=== PATIENT | female | born 1975 | race Caucasian/White ===

== ENCOUNTER 2019-03-21 04:14 | Inpatient (IN) | payer MEDICAID ==
[~2019-03-21] VITALS: Ht 160 cm; Wt 78.1 kg
[2019-03-21 04:37] VITALS: Ht 160 cm; Wt 78.1 kg
[2019-03-21] MEDS ORDERED: LACTATED RINGER'S 1,000 ML IV SCH (04:38)
[2019-03-21] MEDS ORDERED: LACTATED RINGER'S 1,000 ML IV PRN (04:38)
[2019-03-21] MEDS ORDERED: MISOPROSTOL 200 MCG TAB PR PRN ×2 (05:00→10:30)
[2019-03-21] MEDS ORDERED: OXYTOCIN 30 UNITS/LR 500 ML IV SCH ×2 (05:00)
[2019-03-21] MEDS ORDERED: BUTORPHANOL 2 MG INJ IV PRN (05:00)
[2019-03-21] MEDS ORDERED: CARBOPROST 250 MCG INJ IM PRN ×2 (05:00→10:30)
[2019-03-21] MEDS ORDERED: OXYTOCIN 30 UNITS/LR 500 ML IV PRN ×2 (05:00→10:30)
[2019-03-21] MEDS ORDERED: METHYLERGONOVINE 0.2 MG INJ IM PRN ×2 (05:00→10:30)
[2019-03-21] MEDS ORDERED: IBUPROFEN 600 MG TAB PO PRN (05:00)
[2019-03-21] MEDS ORDERED: LIDOCAINE 1% (MPF) 30 ML INJ INJ PRN (05:00)
--- NOTE | 2019-03-21 06:14 | TRIAGE ---
OB Triage Datetime Report Generated by CPN: 03/21/2019 06:14 Datetime: 03/21/2019 05:49 Vaginal Exam Dilatation (cms): 9.0 Effacement (%): 90 Station: -2 Exam By: EMARTIN Datetime: 03/21/2019 05:29 Maternal Assessment Level of Consciousness: Keenly Alert, Responsive Labor Evaluation Frequency: 3-4 Duration (sec)2399: 90-120 Quality: Strong Pattern: Normal: <= 5 Contractions in 10 Minutes Resting Tone [place]: Relaxed Heart Rate FHR Baseline Rate: 145 Monitor Mode: External US Variability: Moderate 6-25 bpm Accelerations: 15X15 Decelerations: None Category: Category I Datetime: 03/21/2019 05:01 Presentation 'A': Cephalic Datetime: 03/21/2019 05:00 Time of Arrival: 03/21/2019 05:00 EGA: 38.5 Arrived By: Wheelchair Datetime: 03/21/2019 04:52 Assessment Type: Admission Assessment Vaginal Bleeding: None Maternal Assessment Level of Consciousness: Keenly Alert, Responsive DTR's/Clonus: DTRs 2+; No Clonus Headache: Denies Blurred Vision: No Respiratory Effort: Unlabored; Regular Rhythm; Equal Expansion Breath Sounds, Left: Clear and Equal Breath Sounds, Right: Clear and Equal Nausea/Vomiting: Denies RUQ Epigastric Pain: Denies Lower Extremities Edema: None Degree: None Upper Extremities Edema: None Degree: None Facial Edema: None Fall Risk Assessment History of Falling: (0) No Secondary Diagnosis: (0) No Ambulatory Aid: (0) Bedrest/Nurse Assist IV Therapy: (0) No Gait: (0) Normal/Bedrest/Immobile Mental Status: (0) Oriented to Own Ability Fall Score: 0 Fall Risk Score Definition: No Risk: No action required Labor Evaluation Frequency: 4 Duration (sec)2399: 60-90 Quality: Strong Pattern: Normal: <= 5 Contractions in 10 Minutes Resting Tone [place]: Relaxed Heart Rate FHR Baseline Rate: 135 Variability: Moderate 6-25 bpm Accelerations: 15X15 Decelerations: None Category: Category I Pain Assessment Pain Scale: 10 Pain Presence: Intermittent Pain Type: Contraction Pain Location: Abdomen Membrane Status: Intact Datetime: 03/21/2019 04:30 Stage of : Labor Labor Evaluation Frequency: q3mins Monitor Mode: External Duration (sec)2399: 80-100 Quality: Strong Pattern: Normal: <= 5 Contractions in 10 Minutes Resting Tone [place]: Relaxed Heart Rate FHR Baseline Rate: 135 Monitor Mode: External US Variability: Moderate 6-25 bpm Accelerations: None Decelerations: Early Datetime: 03/21/2019 04:29 Vaginal Exam Dilatation (cms): 6.5 Effacement (%): 80 Station: -2 Exam By: JUSTIN Sepulveda Membrane Status: Intact Vaginal Bleeding: Scant Cervix, Consistency: Soft Cervix, Position: Posterior Datetime: 03/21/2019 04:27 EGA: 38.5 Datetime: 03/21/2019 04:23 Monitor Mode: External Contraction Comments: [place] applied Heart Rate FHR Baseline Rate: 135 Monitor Mode: External US Comments: EFM applied Datetime: 03/21/2019 04:21 Time of Arrival: 03/21/2019 04:06 Arrived By: Wheelchair Arrived From: Home Chief Complaint: UCs q3mins since 0200 Movement: Present Contractions: Regular Time Contractions Began: 03/21/2019 02:00 Contractions: q3mins Rupture of Membranes: Denies Vaginal Bleeding: None Vaginal Discharge: Present Abdominal Trauma: Not Applicable Patient Complaints: Contractions; Cramping; Back Pain Time Provider Notified: 03/21/2019 04:32 Provider Notified: Initial Plan: EFM, VE
--- NOTE | 2019-03-21 07:16 | LDN ---
Date/Time of Note Date/Time of Note DATE: 03/21/19 TIME: 07:13 Delivery Summary of normal male Weeks of Gestation 38w5d Placenta Delivered: Spontaneously, Intact & Complete Meconium: Light Episiotomy: No Perineal laceration: 0 Anesthesia type: Epidural Estimated blood loss: 150 Sponge & Needle done & correct: Yes All needle counts correct: Yes Any foreign bodies felt in the: No Infant Delivery Information Sex Infant Sex: male Apgars 1 Minute: 9 5 Minute: 9 Suctioning Nose & mouth suctioned at anibal: Yes Delee suction performed: Yes Umbilical Cord Umbilical cord with: 3 Vessels Cord presentations: no nuchal cord Cord Blood was obtained: Yes Mother & Baby Disposition Disposition Mom & Baby to Maternity; Good: Yes Mom transferred to: Other Baby to NICU: No BHUPINDER ANSARI MD Mar 21, 2019 07:15
--- NOTE | 2019-03-21 07:35 | HP ---
Date/Time of Note Date/Time of Note DATE: 03/21/19 TIME: 07:16 OB - History Hx of Present Free Text/Dictation 43 y.o here at 38w5d in active labor with intact membrane. Initial VE 6-7/80/-2 CAT I no record is available but her course was initiated in july 05 was unevenful. GBS status neg admitted for expectant management. Chief Complaint: uc's Estimated Due Date: Mar 30, 2019 : 3 Para: 2 Spontaneous : 0 Therapeutic : 0 Care: Other Ultrasounds: Normal mid trimester US Obstetrical Complications: None Medical Complications: None Past Family/Social History * Past Medical, Surgical, Family and Obstetric Histories reviewed from chart. Blood Type: Unknown RPR/VDRL: Negative GBS Status: Negative HBsAG: Unknown OB Admission Exam Vital Signs Vital Signs Vital Signs Date Temp Pulse Resp B/P (MAP) Pulse Ox O2 O2 Flow FiO2 Time Delivery Rate 03/21/19 98.0 04:38 Physical Exam HEENT: WNL Heart: Rhythm Normal Lungs: Clear, Equal Abdomen: WNL Extremities: Normal Reflexes: Normal Cervical Dilatation: 6cm Effacement: 75% Station: -2 Membranes: Intact Amniotic Fluid: Unevaluable Heart Rate: 130's Accelerations: Accelerations Present Decelerations: No Decelerations Varibility: Moderate Contractions on Admission: < 5 Minutes Apart Intensity: Firm Last 72 hours Lab Results CBC & BMP 03/21/19 04:46 OB Assessment/Plan Reason for admission: active labor Other Assessment: A IUP 38w5d in active labor Plan: Expectant Management BHUPINDER ANSARI MD Mar 21, 2019 07:31
[2019-03-21 09:00] VITALS: BP 98/56; PULSE 68; RESP 19
[2019-03-21] MEDS ORDERED: BENZOCAINE 20% 56 ML SPRAY TOP PRN (10:30)
[2019-03-21] MEDS ORDERED: ZOLPIDEM 5 MG TAB PO PRN (10:30)
[2019-03-21] MEDS ORDERED: LANOLIN HPA 1 PKT TOP PRN (10:30)
[2019-03-21] MEDS ORDERED: WITCH HAZEL/GLYCERIN PAD PR PRN (10:30)
[2019-03-21] MEDS ORDERED: OXYCODONE/ASPIRIN (4.88/325) TAB PO PRN ×2 (10:30)
[2019-03-21 12:00] VITALS: BP 101/69; PULSE 68; RESP 20
[2019-03-21] MEDS: IBUPROFEN 600 MG TAB PO SCH ×2 (12:35→18:12)
[2019-03-21 16:30] VITALS: BP 99/55; PULSE 70; RESP 19
[2019-03-21 20:30] VITALS: BP 91/51; PULSE 70; RESP 18
[2019-03-21] MEDS: SENNA/DOCUSATE NA (8.6MG/50MG) TAB PO SCH (21:13)
[2019-03-22 00:26] VITALS: BP 106/56; PULSE 71; RESP 21
[2019-03-22 04:00] VITALS: BP 102/60; PULSE 60; RESP 20
[2019-03-22] MEDS: IBUPROFEN 600 MG TAB PO SCH ×5 (06:00→23:38)
[2019-03-22 08:00] VITALS: BP 95/51; PULSE 66
[2019-03-22] MEDS: SENNA/DOCUSATE NA (8.6MG/50MG) TAB PO SCH ×2 (10:02→23:38)
--- NOTE | 2019-03-22 10:08 | DS ---
Date/Time of Note Date/Time of Note DATE: 03/22/19 TIME: 10:08 Obstetrical Discharge Record Final Diagnosis Final Diagnosis: Term delivered Vaginal Delivery Obstetrical Delivery: Spontaneous Condition on Discharge Physical Assessment Last Vitals: stable afebrile Voiding: Yes Bowel Movement: Yes Breast: Soft, non-tender, Filling Fundus: Firm Abdomen and Incision: soft nt Calf Tenderness: No Patient Condition: Fair GERALDO POSADA MD Mar 22, 2019 10:08
--- NOTE | 2019-03-22 10:09 | PD.PPDC ---
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
[2019-03-22 15:31] VITALS: BP 104/57; PULSE 6; RESP 18
[2019-03-22 20:30] VITALS: BP 96/54; PULSE 65; RESP 20
[2019-03-23 04:28] VITALS: BP 94/51; PULSE 70; RESP 20
[2019-03-23] MEDS: IBUPROFEN 600 MG TAB PO SCH ×2 (05:53→13:23)
[2019-03-23 08:00] VITALS: BP_SYST 103; BP_SYST 114; BP_DIAS 59; BP_DIAS 67; PULSE 79; PULSE 87; RESP 20
[2019-03-23] MEDS ORDERED: DIPHTH/TET/ACEL PERTUSS (ADULT) 0.5 ML VIAL IM* ONE (09:00)
[2019-03-23] MEDS: SENNA/DOCUSATE NA (8.6MG/50MG) TAB PO SCH (09:39)
== END 2019-03-23 16:19 | disposition home or self-care (01) | DRG 807 ==
LOC: OBT 04:14 → L-D 04:15 → OBT 04:32 → L-D 04:32 → MS1 08:55
PROVIDERS: ADMIT Obstetrics & Gynecology; ATTEND Obstetrics & Gynecology
PROC: 10E0XZZ Delivery of Products of Conception, External Approach (ICD-10-PCS; principal; 2019-03-21)
DX: O80 Encounter for full-term uncomplicated delivery (principal); Z37.0 Single live birth; Z3A.38 38 weeks gestation of pregnancy
CPT/HCPCS: 76815; 85025; 85610; 85730; 86592; 86850; 86900; 86901; 87340; 90715; 99464; G0463; J2590; J7120